=== PATIENT | male | born 1990 | race Caucasian/White ===

== ENCOUNTER 2024-01-13 14:54 | Emergency (ER) | payer OTHER ==
[~2024-01-13] VITALS: Ht 170.2 cm; Wt 86.4 kg
[2024-01-13] MEDS ORDERED: AMLO-257 PO (15:16)
[2024-01-13] MEDS ORDERED: MIRT-89 PO (15:16)
[2024-01-13] MEDS ORDERED: HYDR50CA7 PO (15:16)
[2024-01-13] MEDS ORDERED: VENL-68 PO (15:16)
[2024-01-13] MEDS ORDERED: METF-81 PO (15:16)
[2024-01-13] MEDS ORDERED: LISI-892 PO (15:16)
[2024-01-13 15:41] VITALS: TEMP 98.4
[2024-01-13 15:48] VITALS: BP 139/90; PULSE 68; RESP 20
[2024-01-13] MEDS: TraMADol HCL 50 MG TABLET PO ONE (16:01)
== END 2024-01-13 16:27 ==
LOC: EMS 14:57
DX: S82.892A Other fracture of left lower leg, initial encounter for closed fracture (principal); I10 Essential (primary) hypertension; F31.9 Bipolar disorder, unspecified; X58.XXXA Exposure to other specified factors, initial encounter; Y93.89 Activity, other specified; Y92.89 Other specified places as the place of occurrence of the external cause; Y99.8 Other external cause status
CPT/HCPCS: 99283